=== PATIENT | male | born 1980 | race Caucasian/White ===

== ENCOUNTER 2017-03-31 12:44 | Day surgery (SDC) | payer MEDICAID ==
--- NOTE | 2017-03-31 12:51 | CP.SDSHP ---
Same Day Surgery H & P - History Proposed Procedure: colonoscopy - Date & Time Date: 03/31/17 Time: 12:51 Short Stay Discharge - Short Stay Discharge Admitting Diagnosis/Reason for Visit: MELENA Disposition: HOME/ ROUTINE
[2017-03-31] MEDS ORDERED: Propofol 10 mg/ml Inj (20 ML) ONE (14:34)
[2017-03-31] MEDS ORDERED: Lactated Ringer's 1,000 ML IV ONE (14:36)
[2017-03-31] MEDS ORDERED: Lactated Ringer's 500 ML IV SCH (14:45)
[2017-03-31 15:13] VITALS: TEMP 97.8
[2017-03-31 15:55] VITALS: O2SAT 99
[2017-03-31 16:19] VITALS: BP 113/67; PULSE 68; RESP 18
== END 2017-03-31 16:16 | disposition home or self-care (01) ==
LOC: C.ENDO 12:44
PROVIDERS: ATTEND Colon & Rectal Surgery
DX: K92.1 Melena (principal); K64.8 Other hemorrhoids; K64.4 Residual hemorrhoidal skin tags
CPT/HCPCS: 45378; J2704; J7120

== ENCOUNTER 2017-05-06 09:32 | Day surgery (SDC) | payer MEDICAID ==
--- NOTE | 2017-05-06 09:59 | CP.SDSHP ---
Same Day Surgery H & P - History Proposed Procedure: Hemorrhoidectomy proctoplasty Pre-Op Diagnosis: hemorrhoids external internal mucosal rectal prolapse - Previous Medical/Surgical History Previous Surgical History: colonoscopy - Allergies Allergies: Allergies seasonal Allergy (Uncoded 03/31/17 13:23) CONGESTION - Date & Time Date: 05/06/17 Time: 09:58 Short Stay Discharge - Short Stay Discharge Admitting Diagnosis/Reason for Visit: ANAL PROLAPSE,RESIDUAL HEMORRHOIDAL SKIN TAGS Disposition: HOME/ ROUTINE
[2017-05-06] MEDS ORDERED: Lidocaine 2% w Epi 1:100,000 Inj IJ ONE (11:37)
[2017-05-06] MEDS ORDERED: Bupivacaine HCl 0.5% PF (10 ml) Inj ONE (11:38)
[2017-05-06] MEDS ORDERED: Lactated Ringer's 1,000 ML IV ONE ×2 (11:42→14:35)
[2017-05-06] MEDS ORDERED: Propofol 10 mg/ml Inj (20 ML) ONE (11:42)
[2017-05-06] MEDS ORDERED: Midazolam 2 MG/2 ML VIAL ONE (11:42)
[2017-05-06] MEDS ORDERED: Ciprofloxacin 400mg/200ml D5W 400 MG/200 ML BAG IVPB ONE (12:02)
[2017-05-06] MEDS ORDERED: HYDROmorphone 0.5 mg/0.5 ml ISec IVP PRN (12:19)
[2017-05-06] MEDS ORDERED: Oxycodone/Acetaminophen 5/325 mg Tab PO PRN (12:20)
[2017-05-06 14:00] VITALS: O2SAT 100
[2017-05-06 15:32] VITALS: BP 110/72; PULSE 73; RESP 15; TEMP 98.3
--- NOTE | 2017-05-06 21:05 | OP ---
PROCEDURE DATE: 05/06/2017 SURGEON: Nancy Huffman M.D. TYPE OF ANESTHESIA: General. ANESTHESIA ADMINISTERED BY: Dr. Crystal. PREOPERATIVE DIAGNOSIS: Internal and external hemorrhoid with rectal mucosal prolapse. POSTOPERATIVE DIAGNOSIS: Internal and external hemorrhoid with rectal mucosal prolapse. PROCEDURE: Hemorrhoidectomy, internal and external and proctoplasty. FINDINGS: Patient presented with a long history of bleeding. He was noted to have large internal and external hemorrhoids mostly in the right anterior and right posterior location. There were large rectal mucosal prolapse in the posterior location and milder in the anterior location. DESCRIPTION OF PROCEDURE: After satisfactory general anesthesia with the patient in the [facility], the perineum was prepped and draped in usual fashion. The anal canal was dilated and infiltrated with combination of Marcaine 0.5% with lidocaine 1% with epinephrine about 7 mL. The large rectal mucosal prolapse was excised after infiltrating submucosa and then closed with running 3-0 chromic gut suture correcting the internal sphincter muscle to correct the prolapse. The hemorrhoids in the right anterior and right posterior location was excised and closed with running 3-0 chromic gut suture and advancing the mucosa to correct also the prolapse and interrupt at the skin level. A small moderate hemorrhoid in the left lateral location was excised . The anal canal was allowing the large Hill-Gonzalez retractor to place, estimated blood loss of about 10 mL. He tolerated the procedure. Surgicel was inserted and was transferred to recovery room in stable condition. Nancy Huffman MD
== END 2017-05-06 15:29 | disposition home or self-care (01) ==
LOC: C.SDS 09:32
PROVIDERS: ATTEND Colon & Rectal Surgery
DX: K62.2 Anal prolapse (principal); K64.4 Residual hemorrhoidal skin tags; K62.3 Rectal prolapse
CPT/HCPCS: 46260; 88304; J0744; J1170; J2250; J2704; J3010; J7120

== ENCOUNTER 2017-05-07 03:22 | Emergency (ER) | payer MEDICAID ==
[2017-05-07 03:41] VITALS: RESP 20; TEMP 98; O2SAT 98
--- NOTE | 2017-05-07 05:41 | C.PDOC ---
History Of Present Illness 36 year old male with a Hx of hemorrhoidectomy yesterday presents to the ER with a complaint of rectal pain. Patient states he was unable to fill his pain medications and is now having pain to the surgical site. Denies rectal bleeding or abdominal pain. Time Seen by Provider: 05/07/17 05:07 Chief Complaint (Nursing): GI Problem History Per: Patient History/Exam Limitations: no limitations Onset/Duration Of Symptoms: Hrs Current Symptoms Are (Timing): Still Present Radiation Of Pain To:: None Quality Of Discomfort: Unable To Describe Associated Symptoms: Other (No rectal bleeding) Exacerbating Factors: None Alleviating Factors: None Recent travel outside of the [place]: No Past Medical History Reviewed: Historical Data, Nursing Documentation, Vital Signs Vital Signs: Last Vital Signs Temp 98 F 05/07/17 06:28 Pulse 78 05/07/17 06:28 Resp 20 05/07/17 06:28 BP 128/74 05/07/17 06:28 Pulse Ox 98 05/07/17 06:28 - Medical History PMH: No Chronic Diseases Surgical History: No Surg Hx Family History: States: Unknown Family Hx - Social History Hx Alcohol Use: No Hx Substance Use: No - Immunization History Hx Tetanus Toxoid Vaccination: No Hx Influenza Vaccination: No Hx Pneumococcal Vaccination: No Review Of Systems Constitutional: Negative for: Fever Gastrointestinal: Positive for: Rectal Pain. Negative for: Abdominal Pain, Other (Rectal bleeding) Physical Exam - Physical Exam Appears: Non-toxic, No Acute Distress Skin: Normal Color, Warm, Dry Head: Atraumatic, Normacephalic Eye(s): bilateral: Normal Inspection Oral Mucosa: Moist Gastrointestinal/Abdominal: Soft, No Tenderness, No Distention Rectal: Other (Patient refused) Neurological/Psych: Oriented x3, Normal Speech ED Course And Treatment O2 Sat by Pulse Oximetry: 98 (Room air) Pulse Ox Interpretation: Normal Progress Note: Morpine administered for pain. After morphine patient was able to have a small bowel movement in the ER. Patient is requesting a tablet prior to discharge. pt advised to follow up with surgeon or PMD about his pain medication prescription and to follow instructions as given by his surgeon. Reassessment Condition: Improved Disposition - Disposition Disposition: HOME/ ROUTINE Disposition Time: 05:39 Condition: STABLE Additional Instructions: Please follow up with surgeon for reevaluation and rewrite your prescription Return to ER if worse Prescriptions: oxyCODONE/Acetaminophen [Percocet 5/325 mg Tab] 1 tab PO QID PRN #8 tab PRN Reason: Pain Instructions: Rectal Pain (ED) Forms: [employer] [facility] ([place]) - Clinical Impression Clinical Impression: Rectal pain, S/P hemorrhoidectomy - PA / SOUNDING DEVICE OPERATOR / Resident Statement MD/DO has reviewed & agrees with the documentation as recorded. - Scribe Statement The provider has reviewed the documentation as recorded by the Scribaisha Quispe All medical record entries made by the Jacobibaisha were at my direction and personally dictated by me. I have reviewed the chart and agree that the record accurately reflects my personal performance of the history, physical exam, medical decision making, and the department course for this patient. I have also personally directed, reviewed, and agree with the discharge instructions and disposition.
--- NOTE | 2017-05-07 05:42 | C.PDOC ---
Time Seen by Provider: 05/07/17 05:07 Chief Complaint (Nursing): GI Problem Past Medical History Vital Signs: Last Vital Signs Temp 98 F 05/07/17 03:36 Pulse 76 05/07/17 03:36 Resp 20 05/07/17 03:36 BP 138/74 05/07/17 03:36 Pulse Ox 98 05/07/17 05:49 - Medical History PMH: Denies: Chronic Kidney Disease - Social History Hx Alcohol Use: No Hx Substance Use: No - Immunization History Hx Tetanus Toxoid Vaccination: No Hx Influenza Vaccination: No Hx Pneumococcal Vaccination: No ED Course And Treatment O2 Sat by Pulse Oximetry: 98 Disposition Counseled Patient/Family Regarding: Diagnosis, Need For Followup - Disposition Disposition: HOME/ ROUTINE Disposition Time: 05:39 Condition: STABLE Additional Instructions: Please follow up with surgeon for reevaluation and rewrite your prescription Return to ER if worse Prescriptions: oxyCODONE/Acetaminophen [Percocet 5/325 mg Tab] 1 tab PO QID PRN #8 tab PRN Reason: Pain Instructions: Rectal Pain (ED) Forms: [employer] [facility] ([place]) - Clinical Impression Clinical Impression: Rectal pain, S/P hemorrhoidectomy
[2017-05-07] MEDS ORDERED: Oxycodone/Acetaminophen 5/325 mg Tab PO STA (05:47)
[2017-05-07] MEDS ORDERED: Oxycodone/Acetaminophen 5/325 mg Tab ONE (06:07)
[2017-05-07 06:30] VITALS: BP 128/74; PULSE 78
== END 2017-05-07 06:28 | disposition home or self-care (01) ==
LOC: C.ER 03:22
DX: K62.89 Other specified diseases of anus and rectum (principal); Z98.890 Other specified postprocedural states
CPT/HCPCS: 96372; 99283; J2270